=== PATIENT | female | born 1945 | race Caucasian/White ===

== ENCOUNTER 2023-08-28 09:41 | Emergency (ER) | payer MEDICARE, OTHER, SELFPAY ==
[2023-08-28 09:49] VITALS: BP 132/71
--- NOTE | 2023-08-28 10:15 | ED.GENMED ---
History of Present Illness
General
Chief Complaint: Musculo-Skeletal Complaint
Time Seen by Provider: 08/28/23 09:54
Travel History
Have you had any contact with someone who has COVID-19?: No
Do you have any symptoms of coronavirus? Fever > 100 degrees, chills, cough, shortness of breath, sore throat, loss of taste or smell, muscle aches, or headache?: No
History of Present Illness
History of Present Illness:
78-year-old female presents the emergency department for evaluation of left wrist pain after a fall this morning on ice. Braced her fall with the left hand. There is bruising over the proximal hand dorsally. No distal paresthesias. Denies elbow
or shoulder pain. Denies head injury.
Past History
Past History
ED Past Medical History: Arrthythmia (nonsustained V. tach), HTN, Hypercholesterolemia, NIDDM (impaired fasting glucose), Other (osteoporosis, retinal edema, vitamin D deficiency, glaucoma) and Other (Recently diagnosed with Parkinson's.)
ED Past Surgical History: Other (2016 drain in left eye due to glaucoma)
Social History
Tobacco: Non-smoker
Alcohol: Occasional
Drug: None
Personal:
Living: with family
Family History
Family History: Other (reviewed and noncontributory)
Review of Systems
Review of Systems
Allergies reviewed?: Yes
All Other Systems: ROS reviewed and negative except as documented in HPI and ROS
Phy Exam
Physical Exam
Physical Exam:
GEN: Well appearing, NAD, WDWN
HEENT: Oral mucosa moist, no scleral icterus
Cardiac: Regular rate
Lung: No respiratory distress, no tachypnea
MSK: Minor ecchymosis and swelling to the left dorsal carpal region, range of motion limited by pain, no gross deformities, nontender to the distal radial ulnar region, nontender to the elbow or forearm.
Skin: Good color, no pallor or jaundice, no rashes
Neuro: AO x3, moves all extremities freely
Psych: Calm, cooperative
Course
Orders/Labs/Results
Orders:
Orders
08/28/23 09:48
CR Hand - Left Min 3 Views Urgent
Comment:
Reason For Exam: pain
Wrist, Left 3 Views CR [CR Wrist - Left Min 3 Views] Urgent
Comment:
Reason For Exam: pain
08/28/23 10:17
Vista Wrist Left-Treatment ONCE
Vital Signs
Initial and Last Documented VS:
Initial Vital Signs
Temp Pulse Resp BP Pulse Ox
98.4 F 93 17 132/71 98
08/28/23 09:49 08/28/23 09:49 08/28/23 09:49 08/28/23 09:49 08/28/23 09:49
Last Documented Vital Signs
Temp Pulse Resp BP Pulse Ox
98.4 F 93 17 132/71 98
08/28/23 09:49 08/28/23 09:49 08/28/23 09:49 08/28/23 09:49 08/28/23 09:49
MDM/Problems Addressed
MDM/Problems Addressed:
78-year-old female presents after a fall. X-rays of the left wrist and hand independently interpreted by me are negative for acute osseous abnormality. Patient is placed in a universal wrist splint for support, discussed supportive care,
outpatient hand surgery evaluation recommended if pain and swelling persist greater than 1 week.
*Critical Care Note
Total Time (30-74mins, 75-104mins- exclusive of procedures): Not Applicable
ED Attending Note
-
Portions of this chart may have been created with voice recognition software.� Occasional wrong word or��sound alike� substitutions may have occurred due to the inherent limitations of voice recognition software.
Discharge Plan
Departure
Patient Disposition: Home (Routine Discharge)
Date of Disposition: 08/28/23
Time of Disposition: 10:17
Patient with high blood pressure during this ER visit?: No
Discharge Problem:
Left wrist sprain
Instructions: Wrist Sprain ED
Referrals:
Tania Cano DO [Family Provider] -
Teofilo Johnson MD [Active] - As needed
Activity Restrictions/Additional Instructions:
Ice the wrist 3 times daily for 15 minutes
Wear the brace whenever you plan to use the hand/wrist for support for the next 1-2 weeks
If pain and swelling continues beyond 1 week, follow up with hand surgery for re-evaluation
Interventions
Interventions:
*Risk Screen - Suicide Last Done: 08/28/23 09:49
*General Assessment Last Done: 08/28/23 09:49
*Neglect/Abuse Screening Last Done: 08/28/23 09:49
ED- Fall Risk Assessment Last Done: 08/28/23 10:42
*ED COVID-19 Vaccine History Last Done: 08/28/23 09:49
*Nursing Disposition Last Done: 08/28/23 10:42
ED-Musculoskeletal Assessment Last Done: 08/28/23 10:42
Discharge Date and Time
Discharge Date/Time: 08/28/23 10:35
== END 2023-08-28 10:35 | disposition home or self-care (01) ==
LOC: EMR 09:41
PROVIDERS: EMERGENCY PHYSICIAN Emergency Medicine; FAMILY PHYSICIAN Family Medicine
DX: S63.502A Unspecified sprain of left wrist, initial encounter (principal); W00.9XXA Unspecified fall due to ice and snow, initial encounter
CPT/HCPCS: 99283; 29125; 73110; 73130

== ENCOUNTER → 2023-09-09 07:16 | Outpatient (REF) | payer MEDICARE, OTHER, SELFPAY ==
[2023-09-09 08:22] LABS: ALT (SGPT) 23 U/L (0-35); AST (SGOT) 32 U/L (14-36); Albumin 4.4 g/dl (3.5-5.0); Alkaline Phosphatase 82 U/L (38-126); Blood Urea Nitrogen 10 mg/dl (7-17); Calcium 9.5 mg/dl (8.4-10.2); Carbon Dioxide 29 mmol/L (22-30); Chloride 104 mmol/L (98-107); Glucose 101 mg/dl (70-99); HDL Cholesterol 91 mg/dl; LDL Cholesterol, Calculated 59 mg/dl; Potassium 4.5 mmol/L (3.5-5.1); Sodium 136 mmol/L (135-145); Total Bilirubin 0.6 mg/dl (0.2-1.3); Total Cholesterol 161 mg/dl (50-199); Total Protein 7.2 g/dl (6.3-8.2); Triglyceride 55 mg/dl (10-149); Very Low Density Lipoprotein 11 mg/dl (0-30); eGFR > 60.00
[2023-09-09 08:38] LABS: Vitamin D, 25-OH*** 49.2 ng/mL (30-80)
[2023-09-09 08:56] LABS: Glycohemoglobin (HgbA1c) 6.4 % (4.0-5.6)
== END ==
LOC: REG 07:16
PROVIDERS: ATTENDING PHYSICIAN Family Medicine; FAMILY PHYSICIAN Internal Medicine Rheumatology
DX: E55.9 Vitamin D deficiency, unspecified (principal); R73.01 Impaired fasting glucose; E78.00 Pure hypercholesterolemia, unspecified
CPT/HCPCS: 36415; 80053; 80061; 82306; 83036

== ENCOUNTER → 2023-11-10 10:36 | Outpatient (REF) | payer MEDICARE, OTHER, SELFPAY | LOC: RAD 10:36 | PROVIDERS: ATTENDING PHYSICIAN Internal Medicine Rheumatology; FAMILY PHYSICIAN Family Medicine | DX: M81.0 Age-related osteoporosis without current pathological fracture (principal) | CPT/HCPCS: 77080 ==

== ENCOUNTER → 2023-11-24 14:32 | Outpatient (REF) | payer MEDICARE, OTHER, SELFPAY | LOC: WDC 14:32 | PROVIDERS: ATTENDING PHYSICIAN Family Medicine | DX: Z12.31 Encounter for screening mammogram for malignant neoplasm of breast (principal) | CPT/HCPCS: 77063; 77067 ==

== ENCOUNTER → 2024-04-30 07:41 | Outpatient (REF) | payer MEDICARE, OTHER, SELFPAY ==
[2024-04-30 10:30] LABS: ALT (SGPT) 21 U/L (0-35); AST (SGOT) 31 U/L (14-36); Albumin 4.8 g/dl (3.5-5.0); Alkaline Phosphatase 74 U/L (38-126); Blood Urea Nitrogen 15 mg/dl (7-17); Calcium 9.6 mg/dl (8.4-10.2); Carbon Dioxide 28 mmol/L (22-30); Chloride 102 mmol/L (98-107); Glucose 98 mg/dl (70-99); HDL Cholesterol 89 mg/dl; LDL Cholesterol, Calculated 63 mg/dl; Potassium 4.5 mmol/L (3.5-5.1); Sodium 142 mmol/L (135-145); Total Bilirubin 0.5 mg/dl (0.2-1.3); Total Cholesterol 166 mg/dl (50-199); Total Protein 7.6 g/dl (6.3-8.2); Triglyceride 72 mg/dl (10-149); Very Low Density Lipoprotein 14 mg/dl (0-30); eGFR > 60.00
== END ==
LOC: REG 07:41
PROVIDERS: ATTENDING PHYSICIAN Internal Medicine Rheumatology; FAMILY PHYSICIAN Family Medicine
DX: M15.9 Polyosteoarthritis, unspecified (principal); M81.0 Age-related osteoporosis without current pathological fracture; R73.01 Impaired fasting glucose; E55.9 Vitamin D deficiency, unspecified; E78.00 Pure hypercholesterolemia, unspecified
CPT/HCPCS: 36415; 80053; 80061; 82306; 83036

== ENCOUNTER → 2024-11-10 07:24 | Outpatient (REF) | payer MEDICARE, OTHER, SELFPAY ==
[2024-11-10 08:47] LABS: ALT (SGPT) 23 U/L (0-35); AST (SGOT) 31 U/L (14-36); Albumin 4.6 g/dl (3.5-5.0); Alkaline Phosphatase 68 U/L (38-126); Blood Urea Nitrogen 11 mg/dl (7-17); Calcium 9.5 mg/dl (8.4-10.2); Carbon Dioxide 28 mmol/L (22-30); Chloride 105 mmol/L (98-107); Glucose 98 mg/dl (70-99); Potassium 4.6 mmol/L (3.5-5.1); Sodium 141 mmol/L (135-145); Total Bilirubin 0.7 mg/dl (0.2-1.3); Total Protein 7.1 g/dl (6.3-8.2); eGFR > 60.00
== END ==
LOC: REG 07:24
PROVIDERS: ATTENDING PHYSICIAN Internal Medicine Rheumatology; FAMILY PHYSICIAN Family Medicine
DX: M15.9 Polyosteoarthritis, unspecified (principal); M81.0 Age-related osteoporosis without current pathological fracture; R73.01 Impaired fasting glucose
CPT/HCPCS: 36415; 80053; 83036

== ENCOUNTER → 2024-12-06 14:50 | Outpatient (REF) | payer MEDICARE, OTHER, SELFPAY | LOC: WDC 14:50 | PROVIDERS: ATTENDING PHYSICIAN Family Medicine | DX: Z12.31 Encounter for screening mammogram for malignant neoplasm of breast (principal) | CPT/HCPCS: 77063; 77067 ==

== ENCOUNTER → 2025-05-19 07:06 | Outpatient (REF) | payer MEDICARE, OTHER, SELFPAY ==
[2025-05-19 08:27] LABS: Hematocrit 43.2 % (37.0-47.0); Hemoglobin 13.6 g/dL (12.0-16.0); Mean Corp Hgb Conc. 31.5 g/dL (33.0-37.0); Mean Corpuscular Volume 95.8 fL (81.0-99.0); Nucleated Red Blood Cells % 0 %; Platelet Count 311 10^3/uL (130-400); Red Cell Dist. Width 13.2 % (11.5-14.5)
[2025-05-19 09:04] LABS: ALT (SGPT) 23 U/L (0-35); AST (SGOT) 31 U/L (14-36); Albumin 4.5 g/dl (3.5-5.0); Alkaline Phosphatase 72 U/L (38-126); Blood Urea Nitrogen 12 mg/dl (7-17); Calcium 9.5 mg/dl (8.4-10.2); Carbon Dioxide 30 mmol/L (22-30); Chloride 101 mmol/L (98-107); Glucose 101 mg/dl (70-99); HDL Cholesterol 82 mg/dl; LDL Cholesterol, Calculated 67 mg/dl; Potassium 4.4 mmol/L (3.5-5.1); Sodium 135 mmol/L (135-145); Total Protein 7.6 g/dl (6.3-8.2); Very Low Density Lipoprotein 13 mg/dl (0-30); eGFR > 60.00
[2025-05-19 09:15] LABS: Vitamin D, 25-OH*** 42.8 ng/mL (30-80)
[2025-05-19 09:29] LABS: TSH 2.84 uIU/ml (0.47-4.68)
[2025-05-19 10:11] LABS: Glycohemoglobin (HgbA1c) 6.0 % (4.0-5.9)
== END ==
LOC: REG 07:06
PROVIDERS: ATTENDING PHYSICIAN Internal Medicine Rheumatology; FAMILY PHYSICIAN Family Medicine
DX: E78.2 Mixed hyperlipidemia (principal); E78.00 Pure hypercholesterolemia, unspecified; E55.9 Vitamin D deficiency, unspecified; M81.0 Age-related osteoporosis without current pathological fracture; Z79.899 Other long term (current) drug therapy
CPT/HCPCS: 36415; 80053; 80061; 82306; 83036; 84443; 85025